=== PATIENT | female | born 1970 | race American Indian/Alaskan Native ===

== ENCOUNTER 2019-01-12 09:01 | Emergency (ER) | payer SELFPAY ==
[2019-01-12 09:10] VITALS: BP 178/81
[2019-01-12 09:32] LABS: Bacteria,Urine 4+ /HPF (Negative); Bilirubin,Urine NEG (Negative); Blood,Urine NEG (Negative); Color,Urine Straw (Yellow); Protein,Urine <15 mg/dL mg/dL (Negative); Urobilinogen,Urine < 2.0 mg/dL (<2.0)
[2019-01-12 09:33] LABS: HCG Qualitative,Urine Negative (Negative)
--- NOTE | 2019-01-12 09:44 | Emergency Department Report ---
ED Abdominal Pain HPI - General Chief Complaint: Abdominal Pain Stated Complaint: STOMACH PAIN Time Seen by Provider: 01/12/19 09:14 Source: patient Mode of arrival: Ambulatory Limitations: No Limitations - History of Present Illness Initial Comments: 48 YO FEMALE COMES TO ER CO SUPRAPUBIC PAIN STARTING THIS AM. POS DYSURIA. LMP 10-9. NO VAG DC. NO FEVER. NO BACK PAIN. 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 - Related Data Previous Rx's Medication Instructions Recorded Last Taken Type Sulfamethoxazole/Trimethoprim 1 each PO BID #10 tablet 01/12/19 Unknown Rx [Bactrim DS TAB] Allergies Allergy/AdvReac Type Severity Reaction Status Date / Time No Known Allergies Allergy Unverified 01/12/19 09:06 ED Review of Systems ROS: Stated complaint: STOMACH PAIN Other details as noted in HPI Comment: All other systems reviewed and negative ED Past Medical Hx - Past Medical History Previous Medical History?: No - Surgical History Past Surgical History?: No - Family History Family history: no significant - Social History Smoking Status: Never Smoker Substance Use Type: None - Medications Home Medications: Home Medications Medication Instructions Recorded Confirmed Last Taken Type Sulfamethoxazole/Trimethoprim 1 each PO BID #10 tablet 01/12/19 Unknown Rx [Bactrim DS TAB] ED Physical Exam - General Limitations: No Limitations General appearance: alert, in no apparent distress - Head Head exam: Present: atraumatic, normocephalic - Eye Eye exam: Present: normal appearance - ENT ENT exam: Present: mucous membranes moist - Neck Neck exam: Present: normal inspection - Respiratory Respiratory exam: Present: normal lung sounds bilaterally. Absent: respiratory distress - Cardiovascular Cardiovascular Exam: Present: regular rate, normal rhythm. Absent: systolic murmur, diastolic murmur, rubs, gallop - GI/Abdominal GI/Abdominal exam: Present: soft, normal bowel sounds - Extremities Exam Extremities exam: Present: normal inspection - Back Exam Back exam: Present: normal inspection - Neurological Exam Neurological exam: Present: alert, oriented X3 - Psychiatric Psychiatric exam: Present: normal affect, normal mood - Skin Skin exam: Present: warm, dry, intact, normal color. Absent: rash ED Course Vital Signs 01/12/19 09:07 Temperature 98.5 F Pulse Rate 83 Respiratory 20 Rate Blood Pressure 178/81 ED Medical Decision Making - Medical Decision Making Labs 01/12/19 09:16 Urine Color Straw Urine Turbidity Clear Urine pH 7.0 Ur Specific [place] 1.010 Urine Protein <15 mg/dl Urine Glucose (UA) Neg Urine Ketones Neg Urine Blood Neg Urine Nitrite Neg Urine Bilirubin Neg Urine Urobilinogen < 2.0 Ur Leukocyte Esterase Tr Urine WBC (Auto) 1.0 Urine RBC (Auto) 1.0 U Epithel Cells (Auto) 1.0 Urine Bacteria (Auto) 4+ Urine HCG, Qual Negative Vital Signs 01/12/19 09:07 Temperature 98.5 F Pulse Rate 83 Respiratory 20 Rate Blood Pressure 178/81 NO CVA TENDERNESS NO ABD PAIN ON PALP NO FEVER NON ILL TAKING PO AMBULATORY NON TOXIC UA NOTED PREG NEG NO PMH OF THE SAME NORMAL BM THIS AM DC HOME WITH BACRTRIM FOR DYSURIA AND OBGYN FOLLOW UP- PT VERBALIZES UNDERSTANDING OF THE NEED TO FOLLOW UP TO MAKE SURE BACTERIA /SYMPTOMS IMPROVE - Differential Diagnosis RO PREG- ECTOPIC/UTI Critical care attestation.: If time is entered above; I have spent that time in minutes in the direct care of this critically ill patient, excluding procedure time. ED Disposition Clinical Impression: Abdominal pain, UTI (urinary tract infection) Disposition: DC-01 TO HOME OR SELFCARE Is pt being admited?: No Does the pt Need Aspirin: No Condition: Stable Instructions: Abdominal Pain (ED) Prescriptions: Sulfamethoxazole/Trimethoprim [Bactrim DS TAB] 1 each PO BID #10 tablet Referrals: [facility] [Outside] - 3-5 Days YOSSI POLANCO DO [Staff Physician] - 3-5 Days MARLY GOVEA MD [Staff Physician] - 3-5 Days Time of Disposition: 09:57
== END 2019-01-12 10:10 | disposition home or self-care (01) ==
LOC: ED 09:01
DX: N39.0 Urinary tract infection, site not specified (principal); Z79.899 Other long term (current) drug therapy
CPT/HCPCS: 81001; 81025